=== PATIENT | female | born 1955 | race Caucasian/White ===

== ENCOUNTER 2017-04-27 10:12 | Emergency (ER) | payer OTHER | END 2017-04-27 10:50 | disposition home or self-care (01) | LOC: FTE 10:12 | DX: Z76.0 Encounter for issue of repeat prescription (principal); I10 Essential (primary) hypertension; E11.9 Type 2 diabetes mellitus without complications; Z79.4 Long term (current) use of insulin | CPT/HCPCS: 99281; Z7502 ==

== ENCOUNTER 2017-08-29 17:46 | Emergency (ER) | payer OTHER | END 2017-08-29 19:47 | disposition home or self-care (01) | LOC: FTE 19:47 | DX: R21 Rash and other nonspecific skin eruption (principal); I10 Essential (primary) hypertension; E11.9 Type 2 diabetes mellitus without complications; Z79.4 Long term (current) use of insulin | CPT/HCPCS: 99284; Z7502 ==

== ENCOUNTER 2018-04-18 19:35 | Emergency (ER) | payer OTHER ==
[2018-04-19] MEDS: HYDROCODONE/APAP (5/325) TAB PO (02:48)
[2018-04-19] MEDS: KETOROLAC 30 MG INJ IM (02:49)
[2018-04-19] MEDS: FAMOTIDINE 20 MG TAB PO (02:49)
== END 2018-04-19 03:17 | disposition home or self-care (01) ==
LOC: FTE 19:35
DX: M72.2 Plantar fascial fibromatosis (principal); I10 Essential (primary) hypertension; E11.9 Type 2 diabetes mellitus without complications; Z79.4 Long term (current) use of insulin
CPT/HCPCS: 96372; 99284-25